=== PATIENT | female | born 1980 | race Caucasian/White ===

== ENCOUNTER 2018-12-24 08:35 | Emergency (ER) | payer SELFPAY ==
[~2018-12-24] VITALS: Ht 160 cm; Wt 123.8 kg
[2018-12-24 08:38] VITALS: BP 109/40
--- NOTE | 2018-12-24 08:43 | NUR ---
PT AMB TO BED 3 WITH STEADY GAIT
--- NOTE | 2018-12-24 09:18 | NUR ---
PT C/O LOWER ABD PAIN THAT RADIATES TO LOWER BACK X 2 WEEKS. PER PT, THE PAIN "ITS LIKE CRAMPING BUT DULL AND TENDER" AND RATES PAIN 4/10 AT THIS TIME. PT ALSO REPORTS UNUSUAL VAGINAL BLEEDING AND HEMATURIA X 1 DAY. PT DENIES N/V/D AT THIS TIME. PT IN BED, TO SEE PT. HANNAH
--- NOTE | 2018-12-24 09:23 | NUR ---
ULTRASOUND AT BEDSIDE.
[2018-12-24 09:31] LABS: BASOPHILS % (AUTO) 0.3 % (0.0-2.0); EOSINOPHILS # (AUTO) 0.2 K/uL (0-0.4); EOSINOPHILS % (AUTO) 1.3 % (0.0-4.0); HEMATOCRIT 42.4 % (36-48); HEMOGLOBIN 13.7 g/dL (12.0-16.0); LYMPHOCYTES # (AUTO) 1.6 K/uL (2.5-16.5); LYMPHOCYTES % (AUTO) 13.6 % (20.5-51.1); MEAN CORPUSCULAR HEMOGLOBIN 27 pg (27-31); MEAN CORPUSCULAR HGB CONC 32 g/dL (33-37); MEAN CORPUSCULAR VOLUME 83.9 fL (80-94); MONOCYTES # (AUTO) 0.7 K/uL (0.8-1.0); MONOCYTES % (AUTO) 5.4 % (1.7-9.3); NEUTROPHILS # (AUTO) 9.7 K/uL (1.8-7.7); NEUTROPHILS % (AUTO) 79.4 % (42.2-75.2); PLATELET COUNT (AUTO) 338 K/uL (140-450); RED BLOOD CELL COUNT(AUTO) 5.06 MIL/uL (4.20-5.40); RED CELL DISTRIBUTION WIDTH 14.5 % (11.6-13.7); WHITE BLOOD COUNT (AUTO) 12.2 K/uL (4.8-10.8)
[2018-12-24 09:40] LABS: APPEARANCE,URINE HAZY (CLEAR); BILIRUBIN,URINE NEGATIVE (NEGATIVE); BLOOD, URINE 3+ (NEGATIVE); COLOR,URINE YELLOW (YELLOW); LEUKOCYTE ESTERASE ,URINE NEGATIVE (NEGATIVE); NITRITE, URINE NEGATIVE (NEGATIVE); UGLUCOSE NEGATIVE (NEGATIVE)
[2018-12-24 09:47] LABS: RBC,URINE 11-20 (MOD) /HPF (0-5); WBC,URINE 0-5 /HPF (0-5)
[2018-12-24 10:06] LABS: POTASSIUM 3.7 mmol/L (3.5-5.1)
--- NOTE | 2018-12-24 10:06 | NUR ---
PT RESTING IN BED USING CELLPHONE.
[2018-12-24 10:07] LABS: ANION GAP 14.1 (8-16); CARBON DIOXIDE 25.6 mmol/L (21-32)
[2018-12-24 10:11] LABS: ALBUMIN 3.7 g/dL (3.4-5.0); CREATININE 0.7 mg/dL (0.6-1.3); TOTAL BILIRUBIN 0.6 mg/dL (0.0-1.0)
[2018-12-24] MEDS ORDERED: LORazepam 0.5 MG TAB PO ONE (10:25)
--- NOTE | 2018-12-24 10:33 | NUR ---
PT REPOSTIONED FOR COMFORT.
--- NOTE | 2018-12-24 11:05 | NUR ---
HEIDI HONEYCUTT AT BEDSIDE.
[2018-12-24 11:11] VITALS: BP 109/40
[2018-12-26 06:11] LABS: CHLAMYDIA TRACHOMATIS AMP DNA Negative (Negative)
== END 2018-12-24 11:11 | disposition home or self-care (01) ==
LOC: MED 08:35
DX: R10.30 Lower abdominal pain, unspecified (principal); N93.9 Abnormal uterine and vaginal bleeding, unspecified
CPT/HCPCS: 36415; 76830; 80053; 81001; 81025; 83690; 85025; 87491; 93976; 99284; Q0092